=== PATIENT | male | born 1975 | race Caucasian/White ===

== ENCOUNTER 2021-05-24 10:11 | Emergency (ER) | payer SELFPAY ==
[~2021-05-24] VITALS: Ht 157.5 cm; Wt 98.0 kg
[2021-05-24 13:04] LABS: CLARITY URINE CLEAR (CLEAR); COLOR URINE YELLOW (YELLOW); KETONES URINE NEGATIVE (NEGATIVE); LEUKOCYTE ESTERASE URINE TRACE (NEGATIVE); NITRITE URINE NEGATIVE (NEGATIVE); OCCULT BLOOD URINE NEGATIVE (NEGATIVE); PH URINE 5.5 (4.5-8.0); PROTEIN URINE NEGATIVE (NEGATIVE); UROBILINOGEN URINE 0.2 E.U./dL (0.2-1.0)
[2021-05-24] MEDS ORDERED: TC025C15 TP (14:23)
[2021-05-24 15:00] VITALS: BP 151/87
== END 2021-05-24 15:10 | disposition home or self-care (01) ==
LOC: ER 10:11
DX: N47.1 Phimosis (principal); R03.0 Elevated blood-pressure reading, without diagnosis of hypertension
CPT/HCPCS: 81003; 82962; 99283